=== PATIENT | male | born 1960 | race Caucasian/White ===

== ENCOUNTER 2018-04-27 18:42 | Inpatient (IN) | payer OTHER ==
[~2018-04-27] VITALS: Ht 175.3 cm; Wt 68.1 kg
[~2018-04-27 18:42] MED LIST: ASPIR 8181 MG PO; CAT0.1 PO; COLACE100 MG PO; FER300 PO; METOPROLOL SUCC50 M2 PO; NATURAL IRON65 MG PO; PROCARDIA XL90 MG PO; VITC PO; ZIN PO; ZYV600 PO
[2018-04-27 20:02] LABS: BASOPHIL % 0.6 % (0-2); PLATELET COUNT 172 x10^3mcL (130-400)
[2018-04-27 20:03] LABS: RED CELL DISTRIBUTION WIDTH 19.7 % (11.5-14.5)
[2018-04-27 20:21] LABS: CK-MB 10.4 ng/mL (0-3.6)
[2018-04-27 20:38] LABS: BILIRUBIN TOTAL 0.71 mg/dL (0.20-1.00); CALCIUM 9.2 mg/dL (8.5-10.1); CARBON DIOXIDE 18.1 mmol/L (21-32); TOTAL PROTEIN, SERUM 7.7 g/dL (6.4-8.2)
[2018-04-27 20:39] LABS: CREATININE SERUM 18.2 mg/dL (0.7-1.3)
[2018-04-27 22:19] LABS: MAGNESIUM 2.7 mg/dL (1.8-2.4); PHOSPHOROUS 8.1 mg/dL (2.5-4.9)
[2018-04-27 22:29] LABS: FREE T4 1.09 ng/dL (0.76-1.46); FREE THYROXINE INDEX 2.5 ug/dL (1.4-4.5); T4(THYROXINE) 7.6 ug/dL (4.7-13.3)
[2018-04-27 22:30] LABS: CHOLESTEROL/HDL RATIO 2.3
[2018-04-27 22:32] LABS: T3 TOTAL 0.85 ng/mL
[2018-04-27] MEDS ORDERED: LIPI20 PO (23:19)
[2018-04-27] MEDS ORDERED: AURYXIA1 GM PO (23:22)
[2018-04-27] MEDS ORDERED: BUMETANIDE2 MG PO (23:26)
[2018-04-27] MEDS ORDERED: QUEP PO (23:29)
[2018-04-27] MEDS ORDERED: FUROSEMIDE80 MG PO (23:31)
[2018-04-27] MEDS ORDERED: GABAPENTIN100 M2 PO (23:33)
[2018-04-27] MEDS ORDERED: KEF500 PO (23:41)
[2018-04-27] MEDS ORDERED: LABETALOL HYDR300 MG PO (23:43)
[2018-04-27] MEDS ORDERED: LOSARTAN POTASS50 M1 PO (23:47)
[2018-04-27] MEDS ORDERED: NEPHRO-VITE VITA1 EA PO (23:48)
[2018-04-27] MEDS ORDERED: ACIDOPHILUS LA1 EAC1 PO (23:50)
[2018-04-28] VITALS (8 sets, daily range): BP systolic 98–166; BP diastolic 57–76
[2018-04-28 06:19] LABS: PLATELET COUNT 174 x10^3mcL (130-400)
[2018-04-28 06:26] LABS: CALCIUM 9.4 mg/dL (8.5-10.1); CARBON DIOXIDE 18.6 mmol/L (21-32); MAGNESIUM 2.9 mg/dL (1.8-2.4); PHOSPHOROUS 8.6 mg/dL (2.5-4.9); POTASSIUM SERUM 5.3 mmol/L (3.5-5.1)
[2018-04-28 06:32] LABS: BASOPHIL % 0 % (0-2); RED CELL DISTRIBUTION WIDTH 19.6 % (11.5-14.5)
[2018-04-28 06:40] LABS: CREATININE SERUM 18.5 mg/dL (0.7-1.3)
[2018-04-29 01:46] VITALS: BP 156/70
[2018-04-29 02:05] LABS: APPEARANCE FLUID CLEAR; COLOR FLUID YELLOW; RBC FLUID 682 /cumm; SOURCE FLUID PERITONEAL; WBC FLUID 75 /cumm
[2018-04-29 02:06] LABS: LYMPHOCYTE FLUID 5 %
[2018-04-29 06:15] VITALS: BP 167/77
[2018-04-29 06:16] LABS: BASOPHIL % 0.8 % (0-2); PLATELET COUNT 151 x10^3mcL (130-400)
[2018-04-29 06:56] LABS: CALCIUM 8.4 mg/dL (8.5-10.1); CARBON DIOXIDE 13.7 mmol/L (21-32); MAGNESIUM 2.5 mg/dL (1.8-2.4); PHOSPHOROUS 8.3 mg/dL (2.5-4.9)
[2018-04-29 06:58] LABS: CREATININE SERUM 18.2 mg/dL (0.7-1.3); POTASSIUM SERUM 5.6 mmol/L (3.5-5.1)
[2018-04-29 09:00] LABS: RED CELL DISTRIBUTION WIDTH 19.6 % (11.5-14.5)
[2018-04-29 09:13] VITALS: BP 176/74
[2018-04-29 15:03] VITALS: BP 186/103
[2018-04-29 18:17] VITALS: Ht 175.3 cm; Wt 68.1 kg
[2018-04-29 18:38] LABS: CALCIUM 8.5 mg/dL (8.5-10.1); CARBON DIOXIDE 20.9 mmol/L (21-32); POTASSIUM SERUM 4.3 mmol/L (3.5-5.1)
[2018-04-29 19:35] VITALS: BP 102/59
== END 2018-04-29 22:00 | disposition home or self-care (01) | DRG 190 ==
LOC: ED 18:42 → DU 21:54 → IC 04-29 12:15
PROVIDERS: Emergency Medicine; Family Medicine; Internal Medicine
PROC: 5A1D80Z Performance of Urinary Filtration, Prolonged Intermittent, 6-18 hours Per Day (ICD-10-PCS; principal; 2018-04-29)
DX: I21.A1 Myocardial infarction type 2 (principal); E11.21 Type 2 diabetes mellitus with diabetic nephropathy; E11.51 Type 2 diabetes mellitus with diabetic peripheral angiopathy without gangrene; I12.0 Hypertensive chronic kidney disease with stage 5 chronic kidney disease or end stage renal disease; E44.1 Mild protein-calorie malnutrition; I24.9 Acute ischemic heart disease, unspecified; K52.9 Noninfective gastroenteritis and colitis, unspecified; E11.22 Type 2 diabetes mellitus with diabetic chronic kidney disease; E11.65 Type 2 diabetes mellitus with hyperglycemia; N18.6 End stage renal disease; E87.5 Hyperkalemia; E83.39 Other disorders of phosphorus metabolism; E02 Subclinical iodine-deficiency hypothyroidism; E78.5 Hyperlipidemia, unspecified; E83.41 Hypermagnesemia; D63.1 Anemia in chronic kidney disease; Z99.2 Dependence on renal dialysis; Z79.82 Long term (current) use of aspirin; Z68.22 Body mass index [BMI] 22.0-22.9, adult; Z89.612 Acquired absence of left leg above knee; Z89.511 Acquired absence of right leg below knee; Z79.84 Long term (current) use of oral hypoglycemic drugs; Z82.49 Family history of ischemic heart disease and other diseases of the circulatory system
CPT/HCPCS: 83880; 84439; 87046; 87046-59; J0610; J1644; J3490; J7030; Q0092; Q0162